=== PATIENT | female | born 1995 | race Caucasian/White ===

== ENCOUNTER 2017-02-11 19:07 | Emergency (ER) | payer OTHER ==
[~2017-02-11] VITALS: Ht 157.5 cm; Wt 85.3 kg
[~2017-02-11 19:07] MED LIST: ALEVE220 MG PO; AZITHROMYCIN250 MG PO; CEFTIN250 MG PO; CLINDAMYCIN HC150 MG PO; CYCLOBENZAPRINE10 MG PO; DICLOFENAC SODI75 MG PO; METHOCARBAMOL750 MG PO; NAPROSYN500 MG PO; NORCO 10-325 T1 EACH PO; NORCO 5-325 TA1 EACH PO; PAIN RELIEF500 M1 PO; PERCOCET 5-3251 EACH PO; PREDNISONE20 MG PO; PRENATAL VITAM1 EACH PO; SOMA350 MG PO; TUMS200 MG PO; ULTRAM50 MG PO; VALIUM5 MG PO; ZOFRAN ODT4 MG SL
[2017-02-11] MEDS ORDERED: TRAMADOL HCL50 MG PO (22:00)
== END 2017-02-11 22:20 | disposition home or self-care (01) ==
LOC: ED 19:07
DX: S30.0XXA Contusion of lower back and pelvis, initial encounter (principal); N94.6 Dysmenorrhea, unspecified; F17.200 Nicotine dependence, unspecified, uncomplicated; Z90.49 Acquired absence of other specified parts of digestive tract; Z88.1 Allergy status to other antibiotic agents; Z88.8 Allergy status to other drugs, medicaments and biological substances; W01.0XXA Fall on same level from slipping, tripping and stumbling without subsequent striking against object, initial encounter
CPT/HCPCS: 72100; 80053; 81001; 84703; 85025; 99283

== ENCOUNTER 2017-03-14 14:57 | Emergency (ER) | payer OTHER ==
[~2017-03-14] VITALS: Ht 157.5 cm; Wt 85.3 kg
[~2017-03-14 14:57] MED LIST changes: +TRAMADOL HCL50 MG PO
== END 2017-03-14 15:22 | disposition home or self-care (01) ==
LOC: ED 14:57
DX: Z00.8 Encounter for other general examination (principal)

== ENCOUNTER 2017-04-19 20:21 | Emergency (ER) | payer OTHER ==
[~2017-04-19] VITALS: Ht 157.5 cm; Wt 83.9 kg
== END 2017-04-19 22:05 | disposition left against medical advice (07) ==
LOC: ED 20:21
DX: Z53.21 Procedure and treatment not carried out due to patient leaving prior to being seen by health care provider (principal)

== ENCOUNTER 2017-12-15 09:01 | Emergency (ER) | payer OTHER ==
[~2017-12-15] VITALS: Ht 157.5 cm; Wt 85.9 kg
[2017-12-15] MEDS ORDERED: TRANEXAMIC ACI650 MG PO (10:59)
[2017-12-15] MEDS ORDERED: NORCO 5-325 TA1 EACH PO (10:59)
== END 2017-12-15 11:35 | disposition home or self-care (01) ==
LOC: ED 09:01
DX: N93.8 Other specified abnormal uterine and vaginal bleeding (principal); F17.200 Nicotine dependence, unspecified, uncomplicated; Z88.1 Allergy status to other antibiotic agents; Z88.0 Allergy status to penicillin; Z88.8 Allergy status to other drugs, medicaments and biological substances
CPT/HCPCS: 80053; 84703; 85025; 96361; 96374; 96375; 96376; 99284; J1885; J2270; J2405; J7030

== ENCOUNTER 2019-03-23 05:00 | Inpatient (IN) | payer OTHER ==
[~2019-03-23] VITALS: Ht 157.5 cm; Wt 108.0 kg
--- OUTSIDE RECORDS SUMMARY | ~2019-03-23 | XMS | Clinical Summary ---
Demographics + + + | Address | [address] | | | [address] | | | [place] [address] | + + + | Home Phone | | + + + | Preferred Language | Unknown | + + + | Marital Status | Single | + + + | Roman Catholic Affiliation | Unknown | + + + | Race | Unknown | + + + | Ethnic Group | Unknown | + + + Author + + + | Author | [facility] | | | and [place] | + + + | Organization | [facility] | | | and [place] | + + + | Address | Unknown | + + + | Phone | Unavailable | + + + Support + + +---------+ + | Name | Relationship | Address | Phone | + + +---------+ + | Jose Luis Canales | ECON | Unknown | | + + +---------+ + Care Team Providers + +------+ + | Care Data Management Engineer Name | Role | Phone | + +------+ + | Leslee Luna NP | PCP | | + +------+ + Allergies + + + + + + | Active Allergy | Reactions | Severity | Noted | Comments | | | | | Date | | + + + + + + | Amoxicillin | Hives | High | 02/28/20 | | | | | | 18 | | + + + + + + | Amoxicillin-Pot | Hives | High | 05/17/19 | | | Clavulanate | | | 19 | | + + + + + + | Clavulanic Acid | Hives | | 02/28/20 | | | | | | 18 | | + + + + + + | Cephalexin | Hives | | 02/28/20 | | | | | | 18 | | + + + + + + Medications + + + +---------+------+------+-------+ | Medication | Sig | Dispensed | Refills | Star | End | Statu | | | | | | t | Date | s | | | | | | Date | | | + + + +---------+------+------+-------+ | hydrOXYzine | Take 1 tablet by | 60 | 0 | 04/0 | | Activ | | hydrochloride | mouth every 6 hours | tablet | | 7/20 | | e | | (ATARAX) 25 mg | as needed for | | | 19 | | | | tablet | Itching. | | | | | | + + + +---------+------+------+-------+ | 27-0.8 mg | Take 1 tablet by | | 0 | | | Activ | | multivitamin tablet | mouth Daily. | | | | | e | + + + +---------+------+------+-------+ | VENTOLIN HFA 108 | inhale 2 puffs by | | 0 | 09/1 | | Activ | | (90 Base) MCG/ACT | mouth every 4 hours | | | 2/20 | | e | | inhaler | if needed for 10 | | | 18 | | | | | days | | | | | | + + + +---------+------+------+-------+ | cetirizine | Take 1 tablet by | | 0 | 01/0 | 01/0 | Activ | | (ZYRTEC) 10 mg | mouth daily. | | | / | 01/26 | e | | tablet | | | | 19 | 20 | | + + + +---------+------+------+-------+ | clindamycin | | | 0 | 09/1 | | Activ | | (CLEOCIN) 300 MG | | | | 0/20 | | e | | capsule | | | | 18 | | | + + + +---------+------+------+-------+ | doxycycline | take 1 tablet by | | 0 | 09/1 | | Activ | | (ADOXA) 100 MG | mouth every 12 hours | | | 2/20 | | e | | tablet | for 7 days | | | 18 | | | + + + +---------+------+------+-------+ | NUVARING | | | 0 | 08/1 | | Activ | | 0.12-0.015 MG/24HR | | | | 9/20 | | e | | vaginal ring | | | | 18 | | | + + + +---------+------+------+-------+ | FLUoxetine | take 1 capsule by | | 0 | 10/1 | | Activ | | (PROZAC) 20 mg | mouth once daily | | | 0/20 | | e | | capsule | | | | 18 | | | + + + +---------+------+------+-------+ | FLUoxetine | take 1 tablet by | | 0 | 08/2 | | Activ | | (PROZAC) 20 MG | mouth every morning | | | 3/20 | | e | | tablet | | | | 18 | | | + + + +---------+------+------+-------+ | | | | 0 | 09/1 | | Activ | | HYDROcodone-acetamin | | | | 0/20 | | e | | ophen (NORCO) 5-325 | | | | 18 | | | | mg per tablet | | | | | | | + + + +---------+------+------+-------+ | naproxen | | | 0 | 10/2 | | Activ | | (NAPROSYN) 500 mg | | | | 2/20 | | e | | tablet | | | | 18 | | | + + + +---------+------+------+-------+ Active Problems + + + + | | Estimated Date of Delivery | Comments | + + + + | Yes | 03/19/2019 | | + + + + No additional problems on file Social History + +-------+ +--------+------+ | Tobacco Use | Types | Packs/Day | Years | Date | | | | | Used | | + +-------+ +--------+------+ | Current Some Day | | | | | | Smoker | | | | | + +-------+ +--------+------+ + +---+---+---+ | Smokeless Tobacco: | | | | | Never Used | | | | + +---+---+---+ + + +---------+ + | Alcohol Use | Drinks/Week | oz/Week | Comments | + + +---------+ + | No | | | | + + +---------+ + + + + + | | Estimated Date of Delivery | Comments | + + + + | Yes | 03/19/2019 | | + + + + + + + | Sex Assigned at | Date Recorded | | | | + + + | Not on file | | + + + + + + + | Job Start Date | Occupation | Industry | + + + + | Not on file | Not on file | Not on file | + + + + + + + + | Travel History | Travel Start | Travel End | + + + + + + | No recent travel history available. | + + Last Filed Vital Signs + + + + + | Vital Sign | Reading | Time Taken | Comments | + + + + + | Blood Pressure | 130/79 | 08/13/2018 3:51 PM | | | | | PDT | | + + + + + | Pulse | 80 | 08/13/2018 4:35 PM | | | | | PDT | | + + + + + | Temperature | 36.4 C (97.6 F) | 08/13/2018 3:51 PM | | | | | PDT | | + + + + + | Respiratory Rate | 14 | 08/13/2018 3:51 PM | | | | | PDT | | + + + + + | Oxygen Saturation | 97% | 08/13/2018 4:35 PM | | | | | PDT | | + + + + + | Inhaled Oxygen | - | - | | | Concentration | | | | + + + + + | Weight | 92.6 kg (204 lb 2.3 | 08/13/2018 3:51 PM | | | | oz) | PDT | | + + + + + | Height | 157.5 cm (5' 2") | 08/13/2018 3:51 PM | | | | | PDT | | + + + + + | Body Mass Index | 37.34 | 08/13/2018 3:51 PM | | | | | PDT | | + + + + + Plan of Treatment + + + + + | Health Maintenance | Due Date | Last Done | Comments | + + + + + | Vaccine: | | | | | Pneumococcal 19-64 | 2 | | | | (1 of 1 - PPSV23) | | | | + + + + + | Vaccine: | | | | | Dtap/Tdap/Td (1 - | 5 | | | | Tdap) | | | | + + + + + | Cervical Cancer | | | | | Screening (Pap) | 7 | | | + + + + + | Vaccine: Influenza | | | | | (#1) | 9 | | | + + + + + Results Not on filefrom Last 3 Months Insurance + +--------+ +--------+ +---------+--------+ | Payer | Benefi | Subscriber | Effect | Phone | Address | Type | | | t Plan | ID | camilo | | | | | | / | | Dates | | | | | | Group | | | | | | + +--------+ +--------+ +---------+--------+ | [place] | MEDICA | [id number] | 08/14/19 | [phone] | | Med[place] | | | [place] | | 19-Pre | 2 | | id | | | PLUS | | sent | | | | + +--------+ +--------+ +---------+--------+ + +--------+ +--------+ + + | Guarantor Name | Accoun | Relation to | Date | Phone | Billing Address | | | t Type | Patient | of | | | | | | | | | | + +--------+ +--------+ + + | ParkerAshley | Person | Self | [birth year] | | [address] | | [place] | al/Fam | | 1996 | [phone] | [address] [place] | | | j[place] | | | [address] (Home) | [phone] | + +--------+ +--------+ + + Advance Directives + + + + + | Type | Date Recorded | Patient | Explanation | | | | Automotive Refinisher | | + + + + + | Power of | | | | | Commercial Real Estate Associate | | | | + + + + + | Advance | 02/27/2018 | | | | Directive | 3:05 PM | | | + + + + +
--- OUTSIDE RECORDS SUMMARY | ~2019-03-23 | XMS | Clinical Summary ---
Demographics + + + | Address | [address] | | | [place] [address] | + + + | Home Phone | | + + + | Preferred Language | Unknown | + + + | Marital Status | Single | + + + | Yazidi Affiliation | Unknown | + + + | Race | Unknown | + + + | Ethnic Group | Unknown | + + + Author + + + | Author | [facility] (Historical as of | | | 12-23-18) | + + + | Organization | [facility] (Historical as of | | | 12-23-18) | + + + | Address | Unknown | + + + | Phone | Unavailable | + + + Support +--------+ +---------+ + | Name | Relationship | Address | Phone | +--------+ +---------+ + | One,No | ECON | Unknown | | +--------+ +---------+ + Care Team Providers + +------+ + | Care Metal Burrer Name | Role | Phone | + +------+ + | [facility] PP | | + +------+ + Allergies + [...] + + | Cephalexin | Hives | High | 02/27/20 | | | | | | 18 | | + + + + + + | Clavulanic Acid | Hives | High | 02/27/ | | | | | | 18 | | + + + + + + Current Medications + + +--------+---------+------+------+-------+ | Prescription | Sig. | Disp. | Refills | Star | End | Statu | | | | | | t | Date | s | | | | | | Date | | | + + +--------+---------+------+------+-------+ | naproxen | | | | 10/2 | | Activ | | (NAPROSYN) 500 MG | | | | 2/20 | | e | | tablet | | | | 18 | | | + + +--------+---------+------+------+-------+ | cetirizine | Take 1 tablet by | 30 | 11 | 01/0 | 01/0 | Activ | | (ZYRTEC) 10 MG | mouth daily. | tablet | | 01/26 | 01/26 | e | | tabletIndications: | | | | 19 | 20 | | | Urticaria | | | | | | | + + +--------+---------+------+------+-------+ Active Problems No known active problems Social History + +-------+ +--------+------+ | Tobacco Use | Types | Packs/Day | Years | Date | | | | | Used | | + +-------+ +--------+------+ | Never Assessed | | | | | + +-------+ +--------+------+ + + + | Sex Assigned at | Date Recorded | | | | + + + | Not on file | | + + + Last Filed Vital Signs + + + + | Vital Sign | Reading | Time Taken | + + + + | Blood Pressure | - | - | + + + + | Pulse | - | - | + + + + | Temperature | - | - | + + + + | Respiratory Rate | - | - | + + + + | Oxygen Saturation | - | - | + + + + | Inhaled Oxygen | - | - | | Concentration | | | + + + + | Weight | 93.4 kg (206 lb) | 05/17/2018 9:49 AM PST | + + + + | Height | 157.5 cm (5' 2") | 05/17/2018 9:49 AM PST | + + + + | Body Mass Index | 37.68 | 05/17/2018 9:49 AM PST | + + + + Plan of Treatment + + + + + | Health Maintenance | Due Date | Last Done | Comments | + + + + + | Vaccine: HPV (1 - | | | | | Female 3-dose | 1 | | | | series) | | | | + + + [...] filefrom Last 3 Months Insurance + +--------+ +------+-------+ + | Payer | Benefi | Subscriber | Type | Phone | Address | | | t Plan | ID | | | | | | / | | | | | | | Group | | | | | + +--------+ +------+-------+ + | MEDICAID | [place] | [id number] | | | [address] | | | [place] | | | | [place] | | | [place] | | | | [phone] | | | INSURANCE VERIFY REP | | | | | + +--------+ +------+-------+ + + +--------+ +--------+ + + | Guarantor Name | Accoun | Relation to | Date | Phone | Billing Address | | | t Type | Patient | of | | | | | | | | | | + +--------+ +--------+ + + | DONNA CANALES | Person | Self [birth year] | Home: | [address] | | | al/Fam | | 1995 | [phone] [place] [address] | | | jesus | | | [phone] | | + +--------+ +--------+ + +
--- OUTSIDE RECORDS SUMMARY | ~2019-03-23 | XMS | Encounter Summary ---
Demographics + + + | Address | [address] | | | [address] | | | [place] [address] | + + + | Home Phone | | + + + | Preferred Language | Unknown | + + + | Marital Status | Single | + + + | Adventist Affiliation | Unknown | + + + | Race | Unknown | + + + | Ethnic Group | Unknown | + + + Author + + + | Author | [facility] | | | and [place] | + + + | Organization | [facility] | | | and [...] Team Providers + +------+ + | Care Validation Intern Name | Role | Phone | + +------+ + | Leslee Luna UNIT RECEPTIONIST | PCP | | + +------+ + Encounter Details +--------+ + + + + | Date | Type | Department | Care Team | Description | +--------+ + + + + | 12/19/ | Orders Only | [facility] | Provider, | | | 2018 | | [facility] | MD [address] | | | | | CONVERSION [address] | [place] | | | | | [address] [place], [place] | [place] [address] | | | | | [address] | | | | | | [phone] | | | +--------+ + + + + Social History + +-------+ +--------+------+ | Tobacco [...] + + +---------+ + + + + | Sex Assigned [...] recent travel history available. | + + documented as of this encounter Plan of Treatment Not on filedocumented as of this encounter Visit Diagnoses Not on filedocumented in this encounter"
--- OUTSIDE RECORDS SUMMARY | ~2019-03-23 | XMS | Encounter Summary ---
Demographics + + + | Address | [address] | | | [address] | | | [place] [address] | + + + | Home Phone | | + + + | Preferred Language | Unknown | + + + | Marital Status | Single | + + + | Mandaeism Affiliation | Unknown | + + + | Race | Unknown | + + + | Ethnic Group | Unknown | + + + Author + + + | Author | [facility] | | | and [place] | + + + | Organization | [facility] | | | [...] Team Providers + +------+ + | Care Student Services Representative Name | Role | Phone | + +------+ + | Brian Luna NP | PCP | | + +------+ + Reason for Visit +--------+ + | Reason | Comments | +--------+ + | Rash | | +--------+ + Encounter Details +--------+ + + + + | Date | Type | Department | Care Team | Description | +--------+ + + + + | 08/13/ | Emergency | [facility] | [facility], | Urticarial rash | | 2019 | [facility] | [address] | (Primary Dx); | | | | CENTER [address] | [place], [place] | Allergic reaction, | | | | [place], [place] | [address] | initial encounter | | | | [address] | | | | | | [phone] | | | +--------+ + + + [...] + + documented as of this encounter Last Filed Vital Signs + + + [...] | | + + + + + documented in this encounter Discharge Instructions AttachmentsThe following attachments cannot be sent through Care Everywhere.Fortino (Adult) ( [place])documented in this encounter Medications at Time of Discharge + + + +---------+ + + | Medication | Sig | Dispensed | Refills | Start | End Date | | | | | | Date | | + + + +---------+ + + | cetirizine | Take 1 tablet by | | 0 | 05/17/19 | | | (ZYRTEC) 10 mg | mouth daily. | | | 19 | 0 | | tablet | | | | | | + + + +---------+ + + | clindamycin | | | 0 | 01/17/20 | | | (CLEOCIN) 300 MG | | | | 18 | | | capsule | | | | | | + + + +---------+ + + | doxycycline | take 1 tablet by | | 0 | 01/19/20 | | | (ADOXA) 100 MG | mouth every 12 hours | | | 18 | | | tablet | for 7 days | | | | | + + + +---------+ + + | FLUoxetine | take 1 capsule by | | 0 | 02/16/20 | | | (PROZAC) 20 mg | mouth once daily | | | 18 | | | capsule | | | | | | + + + +---------+ + + | FLUoxetine | take 1 tablet by | | 0 | 12/30/19 | | | (PROZAC) 20 MG | mouth every morning | | | 18 | | | tablet | | | | | | + + + +---------+ + + | | | | 0 | 01/17/20 | | | HYDROcodone-acetamin | | | | 18 | | | ophen (NORCO) 5-325 | | | | | | | mg per tablet | | | | | | + + + +---------+ + + | hydrOXYzine | Take 1 tablet by | 60 | 0 | 08/14/19 | | | hydrochloride | mouth every 6 hours | tablet | | 19 | | | (ATARAX) 25 mg | as needed for | | | | | | tablet | Itching. | | | | | + + + +---------+ + + | naproxen | | | 0 | 02/28/20 | | | (NAPROSYN) 500 mg | | | | 18 | | | tablet | | | | | | + + + +---------+ + + | NUVARING | | | 0 | 12/26/19 | | | 0.12-0.015 MG/24HR | | | | 18 | | | vaginal ring | | | | | | + + + +---------+ + + | 27-0.8 mg | Take 1 tablet by | | 0 | | | | multivitamin tablet | mouth Daily. | | | | | + + + +---------+ + + | VENTOLIN HFA 108 | inhale 2 puffs by | | 0 | 01/19/20 | | | (90 Base) MCG/ACT | mouth every 4 hours | | | 18 | | | inhaler | if needed for 10 | | | | | | | days | | | | | + + + +---------+ + + | predniSONE | Take 5 tablets by | 25 | 0 | 08/14/19 | | | (DELTASONE) 10 mg | mouth Daily for 5 | tablet | | 19 | 9 | | tablet | days. | | | | | + + + +---------+ + + documented as of this encounter Plan of Treatment + +------+--------+ + + | Name | Type | Priori | Associated Diagnoses | Date/Time | | | | ty | | | + +------+--------+ + + | ED INFORMATION | DEVIN | Routin | | 08/13/2018 3:36 PM | | EXCHANGE | | e | | PDT | + +------+--------+ + + documented as of this encounter Procedures + +--------+ + + + | Procedure Name | Priori | Date/Time | Associated Diagnosis | Comments | | | ty | | | | + +--------+ + + + | ED INFORMATION | Routin | 08/13/2018 | | | | EXCHANGE | e | 3:36 PM | | | | | | PDT | | | + +--------+ + + + +---+--------+ | | | | | Proced | | | ure | | | Note - | | | Eileen, | | | Lab In | | | | | | Hlseve | | | n - | | | 08/13/ | | | 2018 | | | 3:37 | | | PM PDT | | | | | | Format | | | ting | | | of | | | this | | | note | | | might | | | be | | | differ | | | ent | | | from | | | the | | | origin | | | al.COL | | | LECTIV | | | E?NOTI | | | FICATI | | | ON?/ | | | | | | 9 | | | 15:34? | | | ROBBIN | | | S, | | | SAMANT | | | DIAZ?MRN | | | : | | | [id number] | | | [id number] | | | riteri | | | a Met | | | Care | | | Guidel | | | inesSe | | | curity | | | and | | | Safety | | | No | | | recent | | | | | | Securi | | | ty | | | Events | | | | | | curren | | | tly on | | | | | | fileED | | | Care | | | Guidel | | | inesTh | | | ere | | | are | | | curren | | | tly no | | | ED | | | Care | | | Guidel | | | josie | | | for | | | this | | | patien | | | t. | | | Please | | | check | | | your | | | facili | | | ty's | | | medica | | | l | | | record | | | s | | | system | | | .Care | | | Histor | | | yMedic | | | al/Jaye | | | [email or web address] | | | 0/22/1 | | | 8 | | | 12:00 | | | AM | | | [facility] | | | al | | | Patien | | | t is | | | curren | | | tly | | | establ | | | ished | | | with | | | St | | | [facility] | | Clinic | | | . If | | | patien | | | t is | | | seen | | | in the | | | ED | | | during | | | | | | busine | | | ss | | | hours. | | | | | | Please | | | | | | contac | | | t [facility] | [facility] | at St | | | | | | [place] | | | y | | | Clinic | | | .Care | | | Recomm | | | endati | | | on:Thi | | | s | | | patien | | | t has | | | had 5 | | | or | | | more | | | Emerge | | | ncy | | | Depart | | | ment | | | visits | | | in | | | the | | | last | | | 12 | | | months | | | .? | | | Patien | | | t | | | requir | | | es | | | educat | | | ion on | | | the | | | scope | | | and | | | purpos | | | e of | | | the ED | | | as an | | | acute | | | care | | | provid | | | er not | | | a | | | Primar | | | y Care | | | | | | Provid | | | er and | | | | | | should | | | not | | | be | | | utiliz | | | ed for | | | | | | chroni | | | c | | | condit | | | ions.? | | | These | | | are | | | guidel | | | josie | | | and | | | the | | | provid | | | er | | | should | | | | | | exerci | | | se | | | clinic | | | al | | | judgme | | | nt | | | when | | | provid | | | ing | | | care.P | | | rescri | | | ption | | | Drug | | | Report | | | (12 | | | Mo.)PD | | | MP | | | query | | | found | | | no | | | report | | | .E.D. | | | Visit | | | Count | | | (12 | | | mo.)Fa | | | cility | | | | | | Visits | | | Low | | | Acuity | | | | | | Provid | | | ence | | | St[facility] | | | [facility] | [facility] | | | l | | | Center | | | 2 0 | | | [facility] [place] [facility] | | [facility] | | | al 2 0 | | | Total | | | 4 0 | | | Note: | | | Visits | | | | | | indica | | | te | | | total | | | known | | | visits | | | . | | | Medica | | | id Low | | | | | | Acuity | | | Dx | | | are | | | the | | | number | | | of | | | primar | | | y | | | diagno | | | ses on | | | the | | | Medica | | | id's | | | Low | | | Acuity | | | dx | | | list. | | | | | | Recent | | | | | | Emerge | | | ncy | | | Depart | | | ment | | | Visit | | | [place] | | | yDate | | | Facili | | | ty | | | City | | | State | | | Type | | | Diagno | | | ses or | | | Chief | | | | | | Compla | | | int | | | Apr 7, | | | 2019 | | | Provid | | | ence | | | [facility] | | [place] | | | [place] | | | Emerge | | | ncy | | | rash | | | face/a | | | dominick/le | | | gs | | | Oct | | | 22, | | | 2018 | | | Provid | | | ence | | | [facility] | [place] | | | [place] | | | Emerge | | | ncy | | | rt | | | lower | | | abd | | | pain | | | | | | Chest | | | Pain | | | | | | Hoarse | | | | | | Cough | | | | | | Pleuri | | | sy | | | Oct | | | 21, | | | 2018 | | | [facility] [place] [facility] [place] | | | [place] | | | Emerge | | | ncy | | | Chest | | | pain, | | | | | | unspec | | | ified | | | | | | Acute | | | bronch | | | itis, | | | unspec | | | ified | | | | | | Other | | | chest | | | pain | | | | | | Allerg | | | y | | | status | | | to | | | penici | | | llin | | | | | | Allerg | | | y | | | status | | | to | | | other | | | drugs, | | | | | | medica | | | ments | | | and | | | biolog | | | ical | | | substa | | | nces | | | status | | | | | | Allerg | | | y | | | status | | | to | | | other | | | antibi | | | otic | | | agents | | | | | | status | | | | | | Nicoti | | | ne | | | depend | | | ence, | | | unspec | | | ified, | | | | | | uncomp | | | licate | | | d Aug | | | 9, | | | 2018 | | | [facility] [place] [facility] | [facility] | [place] | | [place] | | | Emerge | | | ncy | | | | | | Allerg | | | y | | | status | | | to | | | other | | | antibi | | | otic | | | agents | | | | | | status | | | | | | Other | | | specif | | | ied | | | abnorm | | | al | | | uterin | | | e and | | | vagina | | | l | | | bleedi | | | ng | | | Nicoti | | | ne | | | depend | | | ence, | | | unspec | | | ified, | | | | | | uncomp | | | licate | | | d | | | Allerg | | | y | | | status | | | to | | | other | | | drugs, | | | | | | medica | | | ments | | | and | | | biolog | | | ical | | | substa | | | nces | | | status | | | | | | Abnorm | | | al | | | uterin | | | e and | | | vagina | | | l | | | bleedi | | | ng, | | | unspec | | | ified | | | | | | Allerg | | | y | | | status | | | to | | | penici | | | llin | | | Recent | | | | | | Inpati | | | ent | | | Visit | | | [place] | | | yNo | | | record | | | ed | | | inpati | | | ent | | | visits | | | . Care | | | | | | Provid | | | ersPro | | | vider | | | PRC | | | Type | | | Phone | | | Fax | | | Servic | | | e | | | Dates | | | MORIOK | | | A, | | | BRIAN | | | C, | | | WHNP-B | | | C | | | Nurse | | | Practi | | | tioner | | | : | | | Women' | | | s | | | Health | | | (541) | | | | | | [phone] | | | 35 | | | (541) | | | [phone] | | | 97 Oct | | | 22, | | | 2018 - | | | | | | Curren | | | t | | | [place] | | | i, | | | Arnulfo | | | E DO | | | Treatm | | | ent | | | Curren | | | t | | | Primar | | | y Care | | | | | | Primar | | | y Care | | | | | | (503) | | | [phone] | | | 99 | | | Curren | | | t | | | JAYCE | | | JOHNSO | | | N, | | | FOOD SCIENCE PROFESSOR, | | | FOOD SCIENCE PROFESSOR | | | Primar | | | y Care | | | (541) | | | | | | [phone] | | | 35 | | | (541) | | | [phone] | | | 97 | | | Curren | | | t | | | [facility] | | | tive | | | Portal | | | This | | | patien | | | t has | | | regist | | | ered | | | at the | | | | | | Provid | | | ence | | | [facility] | | [facility] | [facility] | | | l | | | Center | | | | | | Emerge | | | ncy | | | Depart | | | ment | | | For | | | more | | | inform | | | ation | | | visit: | | | | | | https: | | | //secu | | | re.[email or web address] | | | ecarep | | | [email or web address] | | | m/cris | | | ent/13 | | | [id number] | | | [id number] | | | [phone] | | | [phone] | | | [id number] | | | [id number] | | | andnbs | | | p | | | PLEASE | | | NOTE: | | | 1. | | | Any | | | care | | | recomm | | | endati | | | ons | | | and | | | other | | | clinic | | | al | | | inform | | | ation | | | are | | | provid | | | ed as | | | guidel | | | josie | | | or for | | | | | | histor | | | ical | | | purpos | | | es | | | only, | | | and | | | provid | | | ers | | | should | | | | | | exerci | | | se | | | their | | | own | | | clinic | | | al | | | judgme | | | nt | | | when | | | provid | | | ing | | | care. | | | 2. | | | You | | | may | | | only | | | use | | | this | | | inform | | | ation | | | for | | | purpos | | | es of | | | treatm | | | ent, | | | paymen | | | t or | | | health | | | care | | | operat | | | ions | | | activi | | | ties, | | | and | | | subjec | | | t to | | | the | | | limita | | | tions | | | of | | | applic | | | able | | | Collec | | | tive | | | Polici | | | es. | | | 3. | | | You | | | should | | | | | | consul | | | t | | | direct | | | ly | | | with | | | the | | | organi | | | zation | | | that | | | provid | | | ed a | | | care | | | guidel | | | ine or | | | other | | | | | | clinic | | | al | | | histor | | | y with | | | any | | | questi | | | ons | | | about | | | additi | | | onal | | | inform | | | ation | | | or | | | accura | | | cy or | | | comple | | | teness | | | of | | | inform | | | ation | | | provid | | | ed.? | | | 2019 | | | [facility] | | | tive | | | Medica | | | l | | | [employer] | | | logies | | | , Inc[employer] | | | - | | | [email or web address] | | | llecti | | | vemedi | | | [email or web address] | | | m | +---+--------+ documented in this encounter Visit Diagnoses + + | Diagnosis | + + | Urticarial rash - Primary Urticaria, unspecified | + + | Allergic reaction, initial encounter | + + documented in this encounter Administered Medications + +--------+ +-------+------+ + | Medication Order | MAR | Action | Dose | Rate | Site | | | Action | Date | | | | + +--------+ +-------+------+ + | dexamethasone (DECADRON) 10 | Given | 08/14/19 | 10 mg | | Deltoid- | | mg/mL injection for oral use 10 | | 19 4:12 | | | Left | | mg 10 mg, Oral, ONCE, 08/13/18 | | PM PDT | | | | | at 1555, For 1 dose, Use | | | | | | | dexamethasone 10 mg/mL vial for | | | | | | | inject for this oral dose, | | | | | | + +--------+ +-------+------+ + +---+---+ | | | +---+---+ + +-------+ +-------+---+ + | hydrOXYzine hydrochloride | Given | 08/14/19 | 50 mg | | Deltoid- | | (VISTARIL) injection 50 mg 50 | | 19 4:13 | | | Right | | mg, Intramuscular, ONCE, Sun | | PM PDT | | | | | 08/13/18 at 1555, For 1 dose, For | | | | | | | IM use only., | | | | | | + +-------+ +-------+---+ + +---+---+ | | | +---+---+ documented in this encounter
--- OUTSIDE RECORDS SUMMARY | ~2019-03-23 | XMS | Encounter Summary ---
Demographics + + + | Address | [address] | | | [address] | | | [place] [address] | + + + | Home Phone | | + + + | Preferred Language | Unknown | + + + | Marital Status | Single | + + + | Temple Affiliation | Unknown | + + + | Race | Unknown | + + + | Ethnic Group | Unknown | + + + Author + + + | Author | [facility] | | | and Terrenceana | + + + | Organization | [facility] | | | [...] Team Providers + +------+ + | Care Multi Site Leasing Consultant Name | Role | Phone | + +------+ + | Leslee Luna NP | PCP | | + +------+ + Reason for Visit + + + | Reason | Comments | + + + | Chest Pain | | + + + | Cough | | + + + | Hoarse | | + + + Encounter Details +--------+ + + + + | Date | Type | Department | Care Team | Description | +--------+ + + + + | 02/27/ | Emergency | [facility] | [facility] | [facility] (Primary | | 2018 | | [facility] | DO [address] | Dx) | | | | CENTER [address] | [address] [place] | | | | | [place], [place] | [place] [address] | | | | | [address] | [phone] | | | | | [phone] | | | +--------+ + + + [...] + + + | Blood Pressure | 124/77 | 02/27/2018 3:43 PM | | | | | PDT | | + + + + + | Pulse | 70 | 02/27/2018 3:43 PM | | | | | PDT | | + + + + + | Temperature | 36.9 C (98.5 F) | 02/27/2018 1:45 PM | | | | | PDT | | + + + + + | Respiratory Rate | 14 | 02/27/2018 3:43 PM | | | | | PDT | | + + + + + | Oxygen Saturation | 97% | 02/27/2018 3:43 PM | | | | | PDT | | + + + + + | Inhaled Oxygen | - | - | | | Concentration | | | | + + + + + | Weight | 84.8 kg (187 lb) | 02/27/2018 1:45 PM | | | | | PDT | | + + + + + | Height | 157.5 cm (5' 2") | 02/27/2018 1:45 PM | | | | | PDT | | + + + + + | Body Mass Index | 34.2 | 02/27/2018 1:45 PM | | | | | PDT | | + + + + + documented in this encounter Discharge Instructions AttachmentsThe following attachments cannot be sent through Care Everywhere.Raeann (Natalie rios)documented in this encounter Medications at Time of [...] + | | | | 0 | /02/25 | | | HYDROcodone-acetamin | | | | 18 | | | ophen (NORCO) 5-325 | | | | | | | mg per tablet | | | | | | + + + +---------+ + + | naproxen | | | 0 | / | | | (NAPROSYN) 500 mg | | | | 18 | | | tablet | | | | | | + + + +---------+ + + | NUVARING | | | 0 | //20 | | | 0.12-0.015 MG/24HR | | [...] + +---------+ + + | naproxen | Take 1 tablet by | 30 | 0 | 02/28/20 | | | (NAPROSYN) 500 mg | mouth 2 times daily | tablet | | 18 | 9 | | tablet | (with breakfast & | | | | | | | dinner). | | | | | + + + +---------+ + + documented as of this encounter Plan of Treatment Not on filedocumented as of this encounter Procedures + +--------+ + + + | Procedure Name | Priori | Date/Time | Associated Diagnosis | Comments | | | ty | | | | + +--------+ + + + | CT ANGIOGRAM | STAT | 02/27/2018 | | Results for this | | PULMONARY | | 2:35 PM | | procedure are in the | | | | PDT | | results section. | + +--------+ + + + | EXTRA GREEN TOP TUBE | Routin | 02/27/2018 | | Results for this | | | e | 2:03 PM | | procedure are in the | | | | PDT | | results section. | + +--------+ + + + | EXTRA GOLD TOP TUBE | Routin | 02/27/2018 | | Results for this | | | e | 2:03 PM | | procedure are in the | | | | PDT | | results section. | + +--------+ + + + | EXTRA BLUE TOP TUBE | Routin | 02/27/2018 | | Results for this | | | e | 2:03 PM | | procedure are in the | | | | PDT | | results section. | + +--------+ + + + | CBC WITH | STAT | 02/27/2018 | | Results for this | | DIFFERENTIAL | | 2:03 PM | | procedure are in the | | | | PDT | | results section. | + +--------+ + + + | COMPREHENSIVE | STAT | 02/27/2018 | | Results for this | | METABOLIC PANEL | | 2:03 PM | | procedure are in the | | | | PDT | | results section. | + +--------+ + + + documented in this encounter Results CT Angiogram Pulmonary (02/27/2018 2:35 PM PDT) + + | Specimen | + + | | + + + + + | Narrative | Performed At | + + + | CT ANGIOGRAM PULMONARY 02/27/2018 2:11 PM HISTORY: CHEST PAIN | [facility] | | COUGH HOARSE. COMPARISON: None. PROTOCOL: Thin section axial | | | images of the chest were obtained after uneventful administration of | | | 75 mL Omnipaque 350. Coronal and sagittal reformations were acquired. | | | FINDINGS: Neck base is normal. The heart is of normal size. | | | Aorta is normal. The pulmonary arteries are unremarkable. SVC is | | | normal. No enlarged lymph nodes are seen in the mediastinum, reji, | | | or axillae. Trachea and esophagus demonstrate no acute findings. | | | The bilateral lungs are clear. There is no evidence for pleural | | | effusion or pneumothorax. There are cholecystectomy clips. | | | Chest wall structures are normal. There are no acute osseous | | | abnormalities. IMPRESSION - No evidence for pulmonary embolism, | | | no acute findings. Dictated and Signed by: Brady Jack MD | | | Electronically signed: 02/27/2018 2:58 PM | | + + + + + | Procedure Note | + + | Bora, Rad Results In - 02/27/2018 3:[address] ANGIOGRAM PULMONARY 02/27/2018 2:11 | | PMHISTORY: CHEST PAINCOUGHHOARSE.COMPARISON: None.PROTOCOL: Thin section axial images of | | the chest were obtained after uneventfuladministration of 75 mL Omnipaque 350. Coronal | | and sagittal reformations wereacquired.FINDINGS:Neck base is normal.The heart is of | | normal size. Aorta is normal. The pulmonary arteries areunremarkable. SVC is normal.No | | enlarged lymph nodes are seen in the mediastinum, reji, or axillae. Tracheaand esophagus | | demonstrate no acute findings.The bilateral lungs are clear. There is no evidence for | | pleural effusion orpneumothorax.There are cholecystectomy clips.Chest wall structures | | are normal. There are no acute osseous abnormalities.IMPRESSION -No evidence for | | pulmonary embolism, no acute findings.Dictated and Signed by: Brady Jack MD | | Electronically signed: 02/27/2018 2:58 PM | | | |FINDINGS: | |Neck base is normal. | | | |The heart is of normal size. Aorta is normal. The pulmonary arteries are | |unremarkable. SVC is normal. | | | |No enlarged lymph nodes are seen in the mediastinum, reji, or axillae. Trachea | |and esophagus demonstrate no acute findings. | | | |The bilateral lungs are clear. There is no evidence for pleural effusion or | |pneumothorax. | | | |There are cholecystectomy clips. | | | |Chest wall structures are normal. There are no acute osseous abnormalities. | | | |IMPRESSION - | |No evidence for pulmonary embolism, no acute findings. | | | |Dictated and Signed by: Brady Jack MD | | Electronically signed: 02/27/2018 2:58 PM | + + + +---------+ + + | Performing | Address | City/State/Zipcode | Phone Number | | Organization | | | | + +---------+ + + | [facility] | | | | + +---------+ + + Extra Blue Top Tube (02/27/2018 2:03 PM PDT) + +-------+ + + + | Component | Value | Ref Range | Performed | Pathologist | | | | | At | Signature | + +-------+ + + + | Extra Blue | Done | | [facility] | | | Top Tube | | | [facility] | | | | | | [facility] | | | | | | CENTER - | | | | | | LABORATORY | | + +-------+ + + + + + | Specimen | + + | Blood | + + + + + + + | Performing | Address | City/State/Zipcode | Phone Number | | Organization | | | | + + + + + | [facility] | [address] | [place] | [phone] | | [facility] | | [address] | | | - LABORATORY | | | | + + + + + Extra Gold Top Tube (02/27/2018 2:03 PM PDT) + +-------+ + + + | Component | Value | Ref Range | Performed | Pathologist | | | | | At | Signature | + +-------+ + + + | Extra Gold | Done | | [facility] | | | Top Tube | | | [facility] | | | | | | [facility] | | | | | | CENTER - | | | | | | LABORATORY | | + +-------+ + + + + + | Specimen | + + | Blood | + + + + + + + | Performing | Address | City/State/Zipcode | Phone Number | | Organization | | | | + + + + + | [facility] | [address] | [place] | [phone] | | [facility] | | [address] | | | - LABORATORY | | | | + + + + + Extra Green Top Tube (02/27/2018 2:03 PM PDT) + +-------+ + + + | Component | Value | Ref Range | Performed | Pathologist | | | | | At | Signature | + +-------+ + + + | Extra Green | Done | | [facility] | | | Top Tube | | | [facility] | | [facility] | [facility] | | | | | | [facility] - | | | | | | LABORATORY | | + +-------+ + + + + + | Specimen | + + | Blood | + + + + + + + | Performing | Address | City/State/Zipcode | Phone Number | | Organization | | | | + + + + + | [facility] | [address] | [place] | [phone] | | [facility] | | [address] | | | - LABORATORY | | | | + + + + + Comprehensive Metabolic Panel (02/27/2018 2:03 PM PDT) + + + + + + | Component | Value | Ref Range | Performed | Pathologist | | | | | At | Signature | + + + + + + | Na | 137 | 136 - 149 | [facility] | | | | | mmol/L | [facility] | | | | | | MEDICAL | | | | | | CENTER - | | | | | | LABORATORY | | + + + + + + | K | 3.6 | 3.5 - 5.1 | [facility] | | | | | mmol/L | [facility] | | | | | | [facility] | | | | | | CENTER - | | | | | | LABORATORY | | + + + + + + | Cl | 104 | 98 - 109 mmol/L | [facility] | | | | | | [facility] | | | | | | [facility]ICAL | | | | | | CENTER - | | | | | | LABORATORY | | + + + + + + | CO2 | 26 | 24 - 31 mmol/L | [facility] | | | | | | [facility] | | | | | | MEDICAL | | | | | | CENTER - | | | | | | LABORATORY | | + + + + + + | Anion Gap | 7 | 3 - 16 mmol/L | [facility] | | | | | | [facility] | | | | | | MEDICAL | | | | | | CENTER - | | | | | | LABORATORY | | + + + + + + | Glucose | 88 | 70 - 109 mg/dL | [facility] | | | | | | [facility] | | | | | | [facility]ICAL | | | | | | CENTER - | | | | | | LABORATORY | | + + + + + + | BUN | 10 | 7 - 18 mg/dL | [facility] | | | | | | [facility] | | | | | | MEDICAL | | | | | | CENTER - | | | | | | LABORATORY | | + + + + + + | Creatinine | 0.65 | 0.60 - 1.30 | [facility] | | | | | mg/dL | [facility] | | | | | | MEDICAL | | | | | | CENTER - | | | | | | LABORATORY | | + + + + + + | eGFR if not | >60Comment: GLOMERULAR | >=60 | [facility] | | | | FILTRATION | mL/min/1.73m2 | [facility] | | | [facility] | RATE,ESTIMATED | | MEDICAL | | | | mL/min/1.66i7Kygl than | | CENTER - | | | | 60 Chronic kidney | | LABORATORY | | | | disease,if found over a | | | | | | 3-month period.Less than | | | | | | 15 Kidney failureFor | | | | | | | | | | | | Americans,multiply the | | | | | | calculated GFR by 1.21. | | | | | | | | | | + + + + + + | Calcium | 8.8 | 8.3 - 10.5 | [facility] | | | | | mg/dL | [facility] | | | | | | MEDICAL | | | | | | CENTER - | | | | | | LABORATORY | | + + + + + + | Albumin | 4.0 | 3.2 - 5.0 g/dL | [facility] | | | | | | [facility] | | | | | | MEDICAL | | | | | | CENTER - | | | | | | LABORATORY | | + + + + + + | Bilirubin | 0.7Comment: This is an | 0.1 - 1.5 mg/dL | [facility] | | | Total | appended report. These | | [facility] | | | | results have been | | MEDICAL | | | | appended to a previously | | CENTER - | | | | preliminary verified | | LABORATORY | | | | report. | | | | + + + + + + | Total | 7.4 | 6.0 - 7.8 g/dL | [facility] | | | Protein | | | [facility] | | | | | | MEDICAL | | | | | | CENTER - | | | | | | LABORATORY | | + + + + + + | AST | 22Comment: This is an | 10 - 42 U/L | [facility] | | | | appended report. These | | [facility] | | | | results have been | | MEDICAL | | | | appended to a previously | | CENTER - | | | | preliminary verified | | LABORATORY | | | | report. | | | | + + + + + + | ALT | 19Comment: This is an | 6 - 45 U/L | [facility] | | | | appended report. These | | [facility] | | | | results have been | | MEDICAL | | | | appended to a previously | | CENTER - | | | | preliminary verified | | LABORATORY | | | | report. | | | | + + + + + + | Alkaline | 73Comment: This is an | 40 - 110 U/L | [facility] | | | Phosphatase | appended report. These | | [facility] | | | | results have been | | MEDICAL | | | | appended to a previously | | CENTER - | | | | preliminary verified | | LABORATORY | | | | report. | | | | + + + + + + | Globulin | 3.4 | 2.1 - 3.8 g/dL | [facility] | | | | | | [facility] | | | | | | MEDICAL | | | | | | CENTER - | | | | | | LABORATORY | | + + + + + + | Albumin/Maddie | 1.2 | 0.8 - 2.0 | [facility] | | | bulin Ratio | | | [facility] | | | | | | MEDICAL | | | | | | CENTER - | | | | | | LABORATORY | | + + + + + + | BUN/Creatin | 15.4 | | [facility] | | | ine Ratio | | | [facility] | | | | | | MEDICAL | | | | | | CENTER - | | | | | | LABORATORY | | + + + + + + + + | Specimen | + + | Blood | + + + + + + + | Performing | Address | City/State/Zipcode | Phone Number | | Organization | | | | + + + + + | [facility] | [address] | [place] | [phone] | | [facility] | | [address] | | | - LABORATORY | | | | + + + + + CBC with Differential (02/27/2018 2:03 PM PDT) + + + + + + | Component | Value | Ref Range | Performed | Pathologist | | | | | At | Signature | + + + + + + | WBC | 11.4 (H) | 4.0 - 11.0 K/uL | [facility] | | | | | | [facility] | | | | | | MEDICAL | | | | | | CENTER - | | | | | | LABORATORY | | + + + + + + | RBC | 4.30 | 3.70 - 5.20 | [facility] | | | | | M/uL | [facility] | | | | | | MEDICAL | | | | | | CENTER - | | | | | | LABORATORY | | + + + + + + | Hemoglobin | 13.5 | 11.5 - 16.0 | [facility] | | | | | g/dL | [facility] | | | | | | MEDICAL | | | | | | CENTER - | | | | | | LABORATORY | | + + + + + + | Hematocrit | 40.6 | 34.0 - 47.0 % | [facility] | | | | | | [facility] | | | | | | MEDICAL | | | | | | CENTER - | | | | | | LABORATORY | | + + + + + + | MCV | 94.4 | 83.0 - 101.0 fL | [facility] | | | | | | [facility] | | | | | | MEDICAL | | | | | | CENTER - | | | | | | LABORATORY | | + + + + + + | MCH | 31.4 | 28.0 - 35.0 pg | [facility] | | | | | | [facility] | | | | | | MEDICAL | | | | | | CENTER - | | | | | | LABORATORY | | + + + + + + | MCHC | 33.3 | 32.0 - 36.0 | [facility] | | | | | g/dL | [facility] | | | | | | MEDICAL | | | | | | CENTER - | | | | | | LABORATORY | | + + + + + + | RDW-CV | 11.2 | <15.0 % | [facility] | | | | | | [facility] | | | | | | MEDICAL | | | | | | CENTER - | | | | | | LABORATORY | | + + + + + + | RDW-SD | 38.5 | 35.1 - 46.3 fL | [facility] | | | | | | [facility] | | | | | | MEDICAL | | | | | | CENTER - | | | | | | LABORATORY | | + + + + + + | Platelet | 271 | 140 - 440 K/uL | [facility] | | | Count | | | [facility] | | | | | | MEDICAL | | | | | | CENTER - | | | | | | LABORATORY | | + + + + + + | MPV | 10.1 | 6.5 - 12.4 fL | [facility] | | | | | | [facility] | | | | | | MEDICAL | | | | | | CENTER - | | | | | | LABORATORY | | + + + + + + | % | 68.9 | 45.0 - 82.0 % | [facility] | | | Neutrophils | | | [facility] | | | | | | MEDICAL | | | | | | CENTER - | | | | | | LABORATORY | | + + + + + + | % | 21.5 | 20.0 - 45.0 % | [facility] | | | Lymphocytes | | | [facility] | | | | | | MEDICAL | | | | | | CENTER - | | | | | | LABORATORY | | + + + + + + | % Monocytes | 7.2 | 4.0 - 12.0 % | [facility] | | | | | | [facility] | | | | | | [facility]ICAL | | | | | | CENTER - | | | | | | LABORATORY | | + + + + + + | % | 1.5 | 0.0 - 5.0 % | [facility] | | | Eosinophils | | | [facility] | | | | | | MEDICAL | | | | | | CENTER - | | | | | | LABORATORY | | + + + + + + | % Basophils | 0.4 | 0.0 - 1.0 % | [facility] | | | | | | [facility] | | | | | | MEDICAL | | | | | | CENTER - | | | | | | LABORATORY | | + + + + + + | % Immature | 0.5 (H)Comment: | 0.0 - 0.4 % | [facility] | | | Granulocyte | Preliminary studies have | | [facility] | | | s | indicated the IG% | | MEDICAL | | | | and/or IG# show promise | | CENTER - | | | | as an early screen for | | LABORATORY | | | | infection. For | | | | | | patients, use the | | | | | | special reference ranges | | | | | | listed below. | | | | + + + + + + | Absolute | 7.88 | 1.80 - 8.50 | [facility] | | | Neutrophils | | K/uL | [facility] | | | | | | MEDICAL | | | | | | CENTER - | | | | | | LABORATORY | | + + + + + + | Absolute | 2.46 | 0.60 - 3.20 | [facility] | | | Lymphocytes | | K/uL | [facility] | | | | | | MEDICAL | | | | | | CENTER - | | | | | | LABORATORY | | + + + + + + | Absolute | 0.82 | 0.00 - 1.00 | [facility] | | | Monocytes | | K/uL | [facility] | | | | | | MEDICAL | | | | | | CENTER - | | | | | | LABORATORY | | + + + + + + | Absolute | 0.17 | 0.00 - 0.40 | [facility] | | | Eosinophils | | K/uL | [facility] | | | | | | MEDICAL | | | | | | CENTER - | | | | | | LABORATORY | | + + + + + + | Absolute | 0.05 | 0.00 - 0.10 | [facility] | | | Basophils | | K/uL | [facility] | | | | | | MEDICAL | | | | | | CENTER - | | | | | | LABORATORY | | + + + + + + | Absolute | 0.06 (H)Comment: For | 0.00 - 0.03 | [facility] | | | Immature | patients, use | K/uL | [facility] | | | Granulocyte | the special reference | | MEDICAL | | | s | ranges listed below. | | CENTER - | | | | | | LABORATORY | | + + + + + + | % nRBC | 0 | 0 - 2 per 100 | [facility] | | | | | WBC's | [facility] | | | | | | MEDICAL | | | | | | CENTER - | | | | | | LABORATORY | | + + + + + + | Absolute | 0.00 | 0.00 - 0.01 | [facility] | | | nRBC | | K/uL | [facility] | | | | | | MEDICAL | | | | | | CENTER - | | | | | | LABORATORY | | + + + + + + + + | Specimen | + + | Blood | + + + + + | Narrative | Performed At | + + + | IMMATURE GRANULOCYTES - For patients, use the following | [facility] | | reference ranges: Trim. Absolute (K/uL) Percentage (%) | [facility] | | 1st 0.003-0.091 K/uL 0.0-0.9% 2nd 0.007-0.247 K/uL | [facility] | | 0.1-2.0% 3rd 0.018-0.456 K/uL 0.1-2.0% | - LABORATORY | + + + + + + + + | Performing | Address | City/State/Zipcode | Phone Number | | Organization | | | | + + + + + | [facility] | [address] | [place], [place] | [phone] | | [facility] | | [address] | | | - LABORATORY | | | | + + + + + documented in this encounter Visit Diagnoses + + | Diagnosis | + + | Pleurisy - Primary Pleurisy without mention of effusion or current tuberculosis | + + documented in this encounter Administered Medications + +--------+ +--------+------+------+ | Medication Order | MAR | Action | Dose | Rate | Site | | | Action | Date | | | | + +--------+ +--------+------+------+ | iohexol (OMNIPAQUE 350) 350 | Given | 02/28/20 | 75 mLs | | | | mg/mL injection 75 mL 75 mL, | | 18 2:36 | | | | | Intravenous, ONCE PRN, Other, | | PM PDT | | | | | Starting 02/27/18 at 1436, | | | | | | | For 1 dose, Cat Scanner | | | | | | + +--------+ +--------+------+------+ +---+---+ | | | +---+---+ + +-------+ +-------+---+---+ | ketorolac (TORADOL) injection | Given | 02/28/20 | 30 mg | | | | 30 mg 30 mg, Intravenous, ONCE, | | 18 3:27 | | | | | 02/27/18 at 1515, For 1 dose | | PM PDT | | | | + +-------+ +-------+---+---+ +---+---+ | | | +---+---+ + +------+ +--------+-------+---+ | sodium chloride 0.9% (NS) bolus | Push | 02/28/20 | 30 mLs | 1800 | | | 30 mL 30 mL, Intravenous, | | 18 2:36 | | mL/hr | | | Administer over 1 Minutes, ONCE | | PM PDT | | | | | PRN, for contrast study, Starting | | | | | | | 02/27/18 at 1436, For 1 | | | | | | | dose, May infuse at a different | | | | | | | rate per protocol., Cat Scanner | | | | | | + +------+ +--------+-------+---+ +---+---+ | | | +---+---+ documented in this encounter
[~2019-03-23 05:00] MED LIST changes: +TESSALON PERLE100 MG PO; +TRANEXAMIC ACI650 MG PO
[2019-03-23] MEDS ORDERED: VITAFOL-OB+DHA1 EACH PO (06:19)
[2019-03-23] MEDS ORDERED: TUMS200 MG PO (06:22)
--- NOTE | 2019-03-23 11:44 | PR ---
[facility] [address] [place], [place] [address] Signed Progress Notes IP Datetime Report Generated by CPN: 03/23/2019 11:44 PROGRESS NOTES: [id number] Procedures: Artificial ROM Plan: Continue present management Informed Consent Obtain: Vaginal Delivery Other Informed Consents: AROM VITAL SIGNS: [id number] Vital Signs: Reviewed; Within Normal Limits EXAM: [id number] Dilatation: 3.0 Effacement: 50 Station: -3 Uterine Contractions: None MEMBRANES: [id number] Membrane Status: Intact Amniotic Fluid Color: Clear ROM Note: After informed consent and confirming vertex well applied, AROM performed without difficulty w/ small amount clear fluid. Mother and baby tolerated well. Comments: Pt seen and examined. Doing well. Tolerated Vancomycin without side effect. AROM performed without difficulty. Reviewed anticipated course of labor/delivery. Epidural on demand. EFW 8#0oz Fetus A: [id number] FHR Baseline: 125 Variability: Moderate 6-25bpm Accelerations: 15X15 Decelerations: None FHR Category: Category I Presentation: Vertex Comments on Fetus A: No evidence of metabolic acidosis Fetus B: [id number] Signing Physician: Rosana Johnson DO Copies: ~ *Electronically Signed* 03/23/19 1144 ROSANA JOHNSON DO PATIENT NAME: DONNA POWELL PROGRESS NOTE DATE OF : 95 PHYSICIAN: ROSANA JOHNSON DO RPT #: [id number] REPORT IS CONFIDENTIAL AND NOT TO BE RELEASED WITHOUT AUTHORIZATION
--- NOTE | 2019-03-23 19:16 | PR ---
[facility] [address] [place], [place] [address] Signed Progress Notes IP Datetime Report Generated by CPN: 03/23/2019 19:16 PROGRESS NOTES: [id number] Impression: Reassuring heart rate; Slow Progression of Labor Procedures: Intrauterine Pressure Catheter; Sterile Vag Exam Plan: Continue present management; Augmentation Informed Consent Obtain: Vaginal Delivery Other Informed Consents: AROM VITAL SIGNS: [id number] Vital Signs: Reviewed; Within Normal Limits EXAM: [id number] Dilatation: 5.5 Effacement: 70 Station: -3 Uterine Contractions: Irregular / inadequate MEMBRANES: [id number] Membrane Status: Intact Amniotic Fluid Color: Clear ROM Note: After informed consent and confirming vertex well applied, AROM performed without difficulty w/ small amount clear fluid. Mother and baby tolerated well. Comments: Pt seen and examined. Doing well. Comfortable w/ epidural which was kindly placed by anesthesia. Pitocin per low-dose protocol. IUPC placed and ctxs continue to be inadequate. Will increase pit per protocol. Reviewed anticipated course of labor, and anticipate . All questions answered. Fetus A: [id number] FHR Baseline: 125 Variability: Moderate 6-25bpm Accelerations: 15X15 Decelerations: None FHR Category: Category I Presentation: Vertex Comments on Fetus A: No evidence of metabolic acidosis Fetus B: [id number] Signing Physician: Rosana Johnson DO Copies: *Electronically Signed* 03/23/19 191 ROSANA JOHNSON DO PATIENT NAME: DONNA POWELL PROGRESS NOTE DATE OF : 95 PHYSICIAN: ROSANA JOHNSON DO RPT #: [id number] REPORT IS CONFIDENTIAL AND NOT TO BE RELEASED WITHOUT AUTHORIZATION [facility] [address] [place] [address] Signed ~ *Electronically Signed* 03/23/19 1916 JOHNSONROSANA DO PATIENT NAME: DONNA POWELL PROGRESS NOTE DATE OF : 95 PHYSICIAN: ROSANA JOHNSON DO RPT #: [id number] REPORT IS CONFIDENTIAL AND NOT TO BE RELEASED WITHOUT AUTHORIZATION
--- NOTE | 2019-03-24 11:57 | PR ---
[facility] [address] [facility] [place], [place] [address] Signed PP Progress Notes Datetime Report Generated by CPN: 03/24/2019 11:57 SUBJECTIVE: [id number] Pain: Within normal limits Nausea/Vomiting: Denies Flatus: Yes Bowel Movement: No Vital Signs: [id number] Vital Signs: Reviewed; Within Normal Limits EXAM: [id number] Cardiovascular: Normal Respiratory: Normal Abdomen/Uterus: Normal Lochia: Normal Vulva/Perineum: Not Done Breasts: Not Done CVA Tenderness: Normal Extremities: Normal Incision: Not Applicable Progress: Normal Exam Comments: Fundus firm U-2 nontender IMPRESSION/PLAN/PROCEDURES: [id number] Impression: Normal progression Plan: Continue present management Progress Notes: Pt seen and examined. Doing well. Ambulating, voiding, and tolerating full diet. Pain and lochia minimal. well. No fevers/chills/other concerns. Anticipate d/c home tomorrow if cleared by pediatrics. All questions answered. Signing Physician: Rosana Jonhson DO Copies: ~ *Electronically Signed* 03/24/19 1157 ROSANA JOHNSON DO PATIENT NAME: DONNA POWELL PROGRESS NOTE DATE OF : 89 PHYSICIAN: ROSANA JOHNSON DO RPT #: [id number] REPORT IS CONFIDENTIAL AND NOT TO BE RELEASED WITHOUT AUTHORIZATION
--- NOTE | 2019-03-25 09:11 | PR ---
[facility] [address] [facility] [place], [place] [address] Signed PP Progress Notes Datetime Report Generated by CPN: 03/25/2019 09:11 SUBJECTIVE: [id number] Pain: Within normal limits Nausea/Vomiting: Denies Flatus: Yes Bowel Movement: Yes Vital Signs: [id number] Vital Signs: Reviewed; Within Normal Limits Notable Details: Few slightly elevated BPs. No DIAZ, RUQ pain, or visual changes EXAM: [id number] Cardiovascular: Normal Respiratory: Normal Abdomen/Uterus: Normal Lochia: Normal Vulva/Perineum: Not Done Breasts: Not Done CVA Tenderness: Normal Extremities: Normal Incision: Not Applicable Progress: Normal Exam Comments: Fundus firm, U-2 nontender IMPRESSION/PLAN/PROCEDURES: [id number] Impression: Normal progression Plan: Discharge Progress Notes: Pt seen and examined. Doing well. Ambulating, voiding, and tolerating full diet. Pain and lochia minimal. well. Few elevated BPs . No DIAZ, RUQ pain or visual changes. Will continue monitoring until discharge. Plan f/u 2 wks w/ Dr. Jorge. PP education performed. All questions answered. Signing Physician: Rosana Johnson DO Copies: ~ *Electronically Signed* 03/25/19 0911 ROSANA JOHNSON DO PATIENT NAME: DONNA POWELL PROGRESS NOTE DATE OF : 95 PHYSICIAN: ROSANA JOHNSON DO RPT #: [id number] REPORT IS CONFIDENTIAL AND NOT TO BE RELEASED WITHOUT AUTHORIZATION
== END 2019-03-25 13:25 | disposition home or self-care (01) | DRG 807 ==
LOC: FBC 05:00
PROVIDERS: ADMIT Obstetrics & Gynecology
PROC: 10E0XZZ Delivery of Products of Conception, External Approach (ICD-10-PCS; principal; 2019-03-23)
PROC: 0UQMXZZ Repair Vulva, External Approach (ICD-10-PCS; 2019-03-23)
PROC: 10907ZC Drainage of Amniotic Fluid, Therapeutic from Products of Conception, Via Natural or Artificial Opening (ICD-10-PCS; 2019-03-23)
PROC: 3E0P7VZ Introduction of Hormone into Female Reproductive, Via Natural or Artificial Opening (ICD-10-PCS; 2019-03-23)
PROC: 10H07YZ Insertion of Other Device into Products of Conception, Via Natural or Artificial Opening (ICD-10-PCS; 2019-03-23)
PROC: 00HU33Z Insertion of Infusion Device into Spinal Canal, Percutaneous Approach (ICD-10-PCS; 2019-03-23)
PROC: 3E0R3BZ Introduction of Anesthetic Agent into Spinal Canal, Percutaneous Approach (ICD-10-PCS; 2019-03-23)
DX: O99.824 Streptococcus B carrier state complicating childbirth (principal); Z37.0 Single live birth; Z3A.40 40 weeks gestation of pregnancy; O69.81X0 Labor and delivery complicated by cord around neck, without compression, not applicable or unspecified; O70.0 First degree perineal laceration during delivery; O99.324 Drug use complicating childbirth; F12.90 Cannabis use, unspecified, uncomplicated; Z88.1 Allergy status to other antibiotic agents; Z87.891 Personal history of nicotine dependence; Z88.0 Allergy status to penicillin
CPT/HCPCS: 01960; 36415; 85027; A9270; J1200; J2590; J2795; J3370; J7060; J7121

== ENCOUNTER 2020-11-21 16:00 | Emergency (ER) | payer OTHER ==
[~2020-11-21] VITALS: Ht 160 cm; Wt 90.0 kg
[~2020-11-21 16:00] MED LIST changes: +VITAFOL-OB+DHA1 EACH PO
--- OUTSIDE RECORDS SUMMARY | 2020-11-21 16:08 | XMS ---
PreManage Notification: DONNA POWELL Security Outreach Consultant Events No recent Security Events currently on file CRITERIA MET - Group Notification CARE PROVIDERS BRIAN ANTONIO Nurse Practitioner: Women's Health 02/27/2018-Current PHONE: [phone] Janie has no Care Guidelines for this patient. Care History Medical/Surgical 02/27/2018 [facility] - Patient is currently established with [facility]. If patient is seen in the ED during business hours. Please contact [facility] at [facility]. Care Recommendation: This patient has had 5 or more Emergency Department visits in the last 12 months.\T\nbsp; Patient requires education on the scope and purpose of the ED as an acute care provider not a Primary Care Provider and should not be utilized for chronic conditions.\T\nbsp; These are guidelines and the provider should exercise clinical judgment when providing care. E.D. VISIT COUNT ([address] [facility] TOTAL 1 NOTE: Visits indicate total known visits. ED/UCC VISIT TRACKING (12 MO.) 11/21/2020 16:01 [facility] TYPE: Emergency COMPLAINT: - TOOTH PAIN INPATIENT VISIT TRACKING (12 MO.) No inpatient visits to display in this time frame [id number]
[2020-11-21] MEDS ORDERED: CLEOCIN HCL300 MG PO (18:24)
== END 2020-11-21 18:35 | disposition home or self-care (01) ==
LOC: ED 16:00
DX: K08.89 Other specified disorders of teeth and supporting structures (principal); Z88.0 Allergy status to penicillin; Z88.8 Allergy status to other drugs, medicaments and biological substances; Z88.1 Allergy status to other antibiotic agents
CPT/HCPCS: 99282

== ENCOUNTER 2022-08-11 08:38 | Emergency (ER) | payer OTHER ==
[~2022-08-11] VITALS: Ht 160 cm; Wt 83.9 kg
[~2022-08-11 08:38] MED LIST changes: +CLEOCIN HCL300 MG PO
--- OUTSIDE RECORDS SUMMARY | 2022-08-11 08:48 | XMS ---
PreManage Notification: DONNA POWELL Security Pediatrics Physician Events No recent Security Events currently on file CRITERIA MET - Group Notification CARE PROVIDERS -, [place]- Dentist: Building Architectural Designer [facility] PHONE: [phone] BRIAN ANTONIO Nurse Practitioner: Women's Health 02/27/2018-Current PHONE: [phone] Janie has no Care Guidelines for this patient. Care History Medical/Surgical 02/27/2018 [facility] - Patient is currently established with [facility]. If patient is seen in the ED during business hours. Please contact CHWs at [facility]. Care Recommendation: This patient has had 5 [...] providing care. E.D. VISIT COUNT (12 MO.) [address] [facility] TOTAL 2 NOTE: Visits indicate total known visits. ED/UCC VISIT TRACKING (12 MO.) 08/11/2022 08:39 [facility] TYPE: Emergency COMPLAINT: - R LEG PAIN 10/24/2021 12:37 [facility] TYPE: Emergency COMPLAINT: - BACK PAIN/INJURY DIAGNOSES: - Nicotine dependence, unspecified, uncomplicated - Allergy status to penicillin - Low back pain, unspecified INPATIENT VISIT TRACKING (12 MO.) No inpatient visits to display in this time frame [id number]
== END 2022-08-11 10:29 | disposition home or self-care (01) ==
LOC: ED 08:38
DX: S83.91XA Sprain of unspecified site of right knee, initial encounter (principal); X58.XXXA Exposure to other specified factors, initial encounter; F17.200 Nicotine dependence, unspecified, uncomplicated; Z88.0 Allergy status to penicillin; Z88.8 Allergy status to other drugs, medicaments and biological substances; Z88.1 Allergy status to other antibiotic agents
CPT/HCPCS: 73560; 99283-25; 99406

== ENCOUNTER 2023-03-03 23:27 | Emergency (ER) | payer OTHER ==
[~2023-03-03] VITALS: Ht 160 cm; Wt 77.1 kg
[~2023-03-03 23:27] MED LIST changes: +HYDROCODON-ACE1 EA10 PO
--- OUTSIDE RECORDS SUMMARY | 2023-03-03 23:30 | XMS ---
PreManage Notification: DONNA POWELL Security Feather Shaper Events No recent Security Events currently on file CRITERIA MET - Group Notification - [facility] - 2 Visits in 30 Days CARE PROVIDERS BRIAN ANTONIO Nurse Practitioner: Women's Health 02/27/2018-Current PHONE: [phone] -, [place]- Dentist: Seed Corn Manager Production [facility] PHONE: [phone] Janie has no Care Guidelines for this patient. Care History Medical/Surgical 02/27/2018 [facility] - Patient is currently established with [facility]. If patient is seen in the ED during business hours. Please contact CHWs at [facility]. Care Recommendation: This patient has had 5 [...] providing care. E.D. VISIT COUNT (12 MO.) [address] [facility] TOTAL 3 NOTE: Visits indicate total known visits. ED/UCC VISIT TRACKING (12 MO.) 03/03/2023 23:28 [facility] TYPE: Emergency COMPLAINT: - SHOULDER INJURY 02/04/2023 07:35 [facility] TYPE: Emergency COMPLAINT: - R KNEE PAIN DIAGNOSES: - Allergy status to other antibiotic agents - Allergy status to other drugs, medicaments and biological substances - Allergy status to penicillin - Nicotine dependence, unspecified, uncomplicated - Pain in right knee - Unspecified internal derangement of right knee 08/11/2022 08:[address] [facility] [place] TYPE: Emergency COMPLAINT: - R LEG PAIN DIAGNOSES: - Allergy status to other antibiotic agents - Allergy status to other drugs, medicaments and biological substances - Allergy status to penicillin - Exposure to other specified factors, initial encounter - Nicotine dependence, unspecified, uncomplicated - Sprain of unspecified site of right knee, initial encounter INPATIENT VISIT TRACKING (12 MO.) No inpatient visits to display in this time frame [id number]
[2023-03-04 02:02] VITALS: BP 114/74
== END 2023-03-04 02:02 | disposition home or self-care (01) ==
LOC: ED 23:27
DX: S43.014A Anterior dislocation of right humerus, initial encounter (principal); F17.200 Nicotine dependence, unspecified, uncomplicated; Z88.1 Allergy status to other antibiotic agents; X50.0XXA Overexertion from strenuous movement or load, initial encounter; Y92.009 Unspecified place in unspecified non-institutional (private) residence as the place of occurrence of the external cause
CPT/HCPCS: 23650; 73030; 99152; 99153; 99283-25; J1170; J1885; J2060; J3010; J7121

== ENCOUNTER 2023-03-27 02:31 | Emergency (ER) | payer OTHER ==
[~2023-03-27] VITALS: Ht 160 cm; Wt 77.1 kg
--- OUTSIDE RECORDS SUMMARY | 2023-03-27 02:34 | XMS ---
PreManage Notification: DONNA POWELL Security Process Improvement Specialist Events No recent Security Events currently on file CRITERIA MET - Group Notification - [facility] - 2 Visits in 30 Days CARE PROVIDERS BRIAN ANTONIO Nurse Practitioner: Women's Health 02/27/2018-Current PHONE: [phone] -, [place]- Dentist: Sap Portal Developer [facility] PHONE: [phone] Janie has no Care Guidelines for this patient. Care History Medical/Surgical 02/27/2018 [facility] - Patient is currently established with [facility]. If patient is seen in the ED during business hours. Please contact CHWs at [facility]. Care Recommendation: This patient has had 5 [...] providing care. E.D. VISIT COUNT (12 MO.) [address] [facility] TOTAL 5 NOTE: Visits indicate total known visits. ED/UCC VISIT TRACKING (12 MO.) 03/27/2023 02:32 [facility] TYPE: Emergency COMPLAINT: - R SHOULDER PAIN 03/27/2023 02:02 [facility] TYPE: Emergency COMPLAINT: - R SHOULDER PAIN 03/03/2023 23:28 [facility] [place] [facility] [place] TYPE: Emergency COMPLAINT: - SHOULDER INJURY DIAGNOSES: - Allergy status to other antibiotic agents - Anterior dislocation of right humerus, initial encounter - Nicotine dependence, unspecified, uncomplicated - Overexertion from strenuous movement or load, initial encounter - Pain in right shoulder - Unspecified place in unspecified non-institutional (private) residence as the place of occurrence of the external cause 02/04/2023 07:35 [facility] [place] [facility] [place] TYPE: Emergency COMPLAINT: - R KNEE PAIN DIAGNOSES: - Allergy status to other antibiotic agents - Allergy status to other drugs, medicaments and biological substances - Allergy status to penicillin - Nicotine dependence, unspecified, uncomplicated - Pain in right knee - Unspecified internal derangement of right knee 08/11/2022 08:39 [facility] [place] [facility] [place] TYPE: Emergency COMPLAINT: - R [...] visits to display in this time frame [id number]
[2023-03-27 03:53] VITALS: BP 132/80
== END 2023-03-27 03:55 | disposition home or self-care (01) ==
LOC: ED 02:31
DX: M24.411 Recurrent dislocation, right shoulder (principal); F17.200 Nicotine dependence, unspecified, uncomplicated; Z88.0 Allergy status to penicillin; Z88.1 Allergy status to other antibiotic agents
CPT/HCPCS: 73020; 73030; A9270; J2060; J3010

== ENCOUNTER 2023-12-17 10:54 | Emergency (ER) | payer OTHER ==
[~2023-12-17] VITALS: Ht 160 cm; Wt 77.7 kg
[2023-12-17] MEDS ORDERED: MECLIZINE HCL25 MG PO (11:56)
[2023-12-17 12:05] VITALS: BP 128/90
== END 2023-12-17 12:05 | disposition home or self-care (01) ==
LOC: ED 10:54
DX: F07.81 Postconcussional syndrome (principal); F17.200 Nicotine dependence, unspecified, uncomplicated; Z88.0 Allergy status to penicillin; Z88.1 Allergy status to other antibiotic agents; Z88.8 Allergy status to other drugs, medicaments and biological substances
CPT/HCPCS: 99283

== ENCOUNTER 2024-08-09 14:35 | Emergency (ER) | payer OTHER ==
[~2024-08-09] VITALS: Ht 160 cm; Wt 84.8 kg
[~2024-08-09 14:35] MED LIST changes: +MECLIZINE HCL25 MG PO
[2024-08-09 16:04] VITALS: BP 117/76
== END 2024-08-09 16:05 | disposition home or self-care (01) ==
LOC: ED 14:35
DX: S63.501A Unspecified sprain of right wrist, initial encounter (principal); F17.200 Nicotine dependence, unspecified, uncomplicated; Z88.0 Allergy status to penicillin; Z88.1 Allergy status to other antibiotic agents; Z79.899 Other long term (current) drug therapy; X58.XXXA Exposure to other specified factors, initial encounter
CPT/HCPCS: 73110; 99283

== ENCOUNTER 2024-08-17 14:40 | Emergency (ER) | payer OTHER ==
[~2024-08-17] VITALS: Ht 160 cm; Wt 85.1 kg
[2024-08-17 17:13] VITALS: BP 00/00
== END 2024-08-17 17:13 | disposition left against medical advice (07) ==
LOC: ED 14:40
DX: M25.561 Pain in right knee (principal); Z53.21 Procedure and treatment not carried out due to patient leaving prior to being seen by health care provider; W22.8XXA Striking against or struck by other objects, initial encounter
CPT/HCPCS: 73560